=== PATIENT | female | born 1995 ===

== ENCOUNTER 2020-07-29 19:29 | Emergency (ER) | payer MEDICAID ==
[2020-07-29] MEDS ORDERED: Amoxicillin 500 MG Cap PO ONE (20:00)
--- NOTE | 2020-07-29 20:10 | EDM.PDOC ---
ED HPI GENERAL MEDICAL PROBLEM - General Chief Complaint: ENT Problem Stated Complaint: POSSIBLE EAR INFECTION Time Seen by Provider: 07/29/20 19:43 - History of Present Illness INITIAL COMMENTS - FREE TEXT/NARRATIVE: Otherwise well 25-year-old female presenting with 3 days of right ear pain fullness and diminished hearing associated with sore throat. No neck stiffness or pain reports some pain with swallowing as well. No shortness of breath no cough no fevers no chills no headache. Symptoms constant and slowly worsening without exacerbating or alleviating factors. 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 Skin: No rash. Eyes: No vision problems. ENT: Per HPI Neck: No neck stiffness. Respiratory: No shortness of breath. Cardiac: No chest pain. Gastrointestinal: No nausea, vomiting or abdominal pain. Urinary: No dysuria. Musculoskeletal: No myalgias/arthralgias. Neurologic: No headache. ED EXAM, GENERAL - Physical Exam Exam: See Below Free Text/Narrative:: General Appearance: No acute distress, appears comfortable Skin: No rash HEENT: Normocephalic/atraumatic, sclera anicteric, mucous membranes moist, right external auditory canal is tender and swollen, nearly swollen shut no mastoid tenderness no auricular swelling no auricular erythema or signs of a cellulitis, on oropharyngeal exam mild erythema but no vesicles uvula midline no submental or sublingual swelling no trismus Neck: Normal range of motion Chest and Lungs: Bilateral breath sounds, clear to auscultation Cardiovascular: Regular rate and rhythm, no murmur Musculoskeletal: No edema or tenderness Neurologic: Awake, alert, no obvious deficits, moving all extremities Psychiatric: Appropriate, cooperative Course - Vital Signs Last Recorded V/S: Last Vital Signs Temp 97.2 F 07/29/20 19:34 Pulse 94 07/29/20 19:34 Resp 14 07/29/20 19:34 BP 129/75 07/29/20 19:34 Pulse Ox 98 07/29/20 19:34 - Orders/Labs/Meds Meds: Medications Discontinued Medications Generic Name Dose Route Start Last Admin Trade Name Freamira PRN Reason Stop Dose Admin Amoxicillin 1,000 mg 07/29/20 20:00 07/29/20 20:09 Amoxil PO 07/29/20 20:01 1,000 mg ONETIME ONE Administration Departure - Departure Time of Disposition: 20:12 Disposition: Home, Self-Care 01 Condition: Good Clinical Impression: Otitis externa - Discharge Information *PRESCRIPTION DRUG MONITORING PROGRAM REVIEWED*: Not Applicable *COPY OF PRESCRIPTION DRUG MONITORING REPORT IN PATIENT NIDIA: Not Applicable Prescriptions: Amoxicillin 875 mg PO BID 7 Days #14 tablet Instructions: Otitis Externa, [id number] Referrals: [facility] [Outside] Forms: ED Department Discharge Additional Instructions: Please put 4 drops of the antibiotic eardrop in your right ear every 6 hours for the next 7 days. You can knot picker cloth the amoxicillin from [facility] pharmacy tomorrow morning. We are using the amoxicillin as well because you also have symptoms of otitis media. I encourage you to follow-up with your primary care provider as well. The following information is given to patients seen in the emergency department who are being discharged to home. This information is to outline your options f or follow-up care. We provide all patients seen in our emergency department with a follow-up referral. The need for follow-up, as well as the timing and circumstances, are variable depending upon the specifics of your emergency department visit. If you don't have a primary care physician on staff, we will provide you with a referral. We always advise you to contact your personal physician following an emergency department visit to inform them of the circumstance of the visit and for follow-up with them and/or the need for any referrals to a consulting specialist. The emergency department will also refer you to a specialist when appropriate. This referral assures that you have the opportunity for follow-up care with a specialist. All of these measure are taken in an effort to provide you with optimal care, which includes your follow-up. Under all circumstances we always encourage you to contact your private physician who remains a resource for coordinating your care. When calling for follow-up care, please make the office aware that this follow-up is from your recent emergency room visit. If for any reason you are refused follow-up, please contact the [facility] Emergency Department at and asked to speak to the emergency department charge nurse. Sepsis Event Note (ED) - Evaluation Sepsis Screening Result: No Definite Risk - Focused Exam Vital Signs: Vital Signs Temp Pulse Resp BP Pulse Ox 07/29/20 19:34 97.2 F 94 14 129/75 98 - Assessment/Plan Plan: 25-year-old female presenting with signs and symptoms most consistent with otitis externa no signs of mastoiditis no signs of meningitis no signs of malignant otitis no risk factors for this. Unfortunately, the external auditory canal is too swollen to get an adequate view of the tympanic membrane. Given this and given the associated sore throat and pain deeper in the ear I would favor empiric treatment for otitis media as well. Because she is we will need to use the Polytrim eardrops. It is unclear whether not we have that in stock if we do not then a prescription be written and she will start that tomorrow morning. No signs of KIER PLEATER RPA or other deep space infection in the neck.
[2020-07-30] MEDS ORDERED: Hydrocortisone/Neomycin/Polymyxin B Otic Susp 10 ML Bottle EARRT SCH
== END 2020-07-29 20:30 | disposition home or self-care (01) ==
LOC: MW.ED 19:29
DX: H60.91 Unspecified otitis externa, right ear (principal)
CPT/HCPCS: 99282; A9270

== ENCOUNTER 2020-12-04 05:06 | Inpatient (IN) | payer MEDICAID ==
[2020-12-04] MEDS: Lactated Ringers 1,000 ML IV SCH ×2 (05:40→07:09)
[2020-12-04] MEDS ORDERED: Sodium Chloride 0.9% 2.5 ML Syringe FLUSH PRN (06:09)
[2020-12-04] MEDS ORDERED: Sodium Chloride 0.9% 10 ML Syringe FLUSH PRN (06:09)
[2020-12-04] MEDS ORDERED: ceFAZolin 2 GM in Premix Bag 1 BAG IV ONE (06:09)
[2020-12-04] MEDS ORDERED: Sodium Chloride 0.9% 10 ML SDV IV PRN (06:09)
[2020-12-04] MEDS ORDERED: Citric Acid/Sodium Citrate Solution 30 ML Cup PO ONE (06:09)
[2020-12-04] MEDS ORDERED: Oxytocin/0.9 % Sodium Chloride 30 UNIT/500 ML BAG IV SCH (06:15)
[2020-12-04] MEDS ORDERED: Morphine PF 10 MG/10 ML SDV ONE (07:09)
--- NOTE | 2020-12-04 07:26 | PCM.PREANE ---
Preanesthetic Assessment - Anesthesia/Transfusion/Family Hx Anesthesia History: Prior Anesthesia Without Reaction (Spinals only) Family History of Anesthesia Reaction: No Transfusion History: No Prior Transfusion(s) - Review of Systems General: No Symptoms Pulmonary: No Symptoms Cardiovascular: No Symptoms Gastrointestinal: No Symptoms Neurological: No Symptoms Other: Reports: None - Physical Assessment NPO Status Date: 12/03/20 NPO Status Time: 22:00 Vital Signs: Last Vital Signs Temp 97.8 F 12/04/20 06:45 Pulse 67 12/04/20 06:45 Resp 16 12/04/20 06:45 BP 129/77 12/04/20 06:45 Pulse Ox 98 12/04/20 06:45 Height: 5 ft 11 in Weight: 86.183 kg ASA Class: 2 Mental Status: Alert & Oriented x3 Airway Class: Mallampati = 2 Dentition: Reports: Normal Dentition Thyro-Mental Finger Breadths: 3 Mouth Opening Finger Breadths: 3 ROM/Head Extension: Full Lungs: Clear to Auscultation, Normal Respiratory Effort Cardiovascular: Regular Rate, Regular Rhythm - Lab Values: Laboratory Last Values WBC 10.36 K/uL (4.0-11.0) 12/04/20 05:35 RBC 3.74 M/uL (4.30-5.90) L 12/04/20 05:35 Hgb 11.0 g/dL (12.0-16.0) L 12/04/20 05:35 Hct 34.2 % (36.0-46.0) L 12/04/20 05:35 MCV 91.4 fL (80.0-98.0) 12/04/20 05:35 MCH 29.4 pg (27.0-32.0) 12/04/20 05:35 MCHC 32.2 g/dL (31.0-37.0) 12/04/20 05:35 RDW Std Deviation 45.9 fl (28.0-62.0) 12/04/20 05:35 RDW Coeff of Rubio 14 % (11.0-15.0) 12/04/20 05:35 Plt Count 157 K/uL (150-400) 12/04/20 05:35 MPV 13.00 fL (7.40-12.00) H 12/04/20 05:35 Nucleated RBC % 0.0 /100WBC 12/04/20 05:35 Nucleated RBCs # 0 K/uL 12/04/20 05:35 Blood Type O POSITIVE 12/04/20 05:35 Antibody Screen NEGATIVE 12/04/20 05:35 - Allergies Allergies/Adverse Reactions: Allergies Allergy/AdvReac Type Severity Reaction Status Date / Time No Known Allergies Allergy Verified 11/28/20 08:20 - Blood Blood Available: Yes - Acknowledgements Anesthesia Type Planned: Spinal (with Duramorph) Pt an Appropriate Candidate for the Planned Anesthesia: Yes Alternatives and Risks of Anesthesia Discussed w Pt/Guardian: Yes Pt/Guardian Understands and Agrees with Anesthesia Plan: Yes PreAnesthesia Questionnaire HEENT History: Reports: None Cardiovascular History: Reports: None Respiratory History: Reports: None Gastrointestinal History: Reports: None Genitourinary History: Reports: None CUSTOMER SOLUTIONS COORDINATOR History: Reports: : 3 Para: 2 LMP (Approximate): Musculoskeletal History: Reports: None Neurological History: Reports: None Psychiatric History: Reports: None Endocrine/Metabolic History: Reports: None Hematologic History: Reports: None Immunologic History: Reports: None Oncologic (Cancer) History: Reports: None Dermatologic History: Reports: None - Infectious Disease History Infectious Disease History: Reports: Chicken Pox - Past Surgical History Head Surgeries/Procedures: Reports: None HEENT Surgical History: Reports: None Cardiovascular Surgical History: Reports: None Respiratory Surgical History: Reports: None GI Surgical History: Reports: None Female Surgical History: Reports: Section (x2) Other Female Surgeries/Procedures: c/section x2 Endocrine Surgical History: Reports: None Neurological Surgical History: Reports: None Musculoskeletal Surgical History: Reports: None Oncologic Surgical History: Reports: None Dermatological Surgical History: Reports: None - SUBSTANCE USE Tobacco Use Status *Q: Former Tobacco User Tobacco Use Within Last Twelve Months: Cigarettes Recreational Drug Use History: No - HOME MEDS Home Medications: Home Meds Pnv No.95/Ferrous Fum/Folic AC [ Vitamin Tablet] 1 each PO DAILY 07/29/20 [History] - CURRENT (IN HOUSE) MEDS Current Meds: Current Medications Oxytocin/Sodium Chloride (Oxytocin 30 Unit/500 Ml-Ns) 30 unit in 500 mls @ 250 mls/hr IV TITRATE THOM Lactated Ringer's (Ringers, Lactated) 1,000 mls @ 500 mls/hr IV BOLUS THOM Last Admin: 12/04/20 07:09 Dose: 500 mls/hr Documented by: Sodium Chloride (Saline Flush) 10 ml FLUSH ASDIRECTED PRN PRN Reason: Keep Vein Open Sodium Chloride (Saline Flush) 2.5 ml FLUSH ASDIRECTED PRN PRN Reason: Keep Vein Open Sodium Chloride (Normal Saline) 10 ml IV ASDIRECTED PRN PRN Reason: IV Use Discontinued Medications Citric Acid/Sodium Citrate (Bicitra Solution) 30 ml PO ONETIME ONE Stop: 12/04/20 06:10 Cefazolin Sodium/Dextrose 2 gm (/ Premix) 50 mls @ 100 mls/hr IV ONETIME ONE Stop: 12/04/20 06:38 Morphine Sulfate (Duramorph Pf) Confirm Administered Dose 10 mg .ROUTE .STK-MED ONE Stop: 12/04/20 07:10
[2020-12-04] MEDS ORDERED: Naloxone 0.4 MG/ML Syringe IVPUSH PRN (07:28)
[2020-12-04] MEDS ORDERED: diphenhydrAMINE 50 MG/ML SDV IVPUSH PRN ×2 (07:28→08:48)
[2020-12-04] MEDS ORDERED: ceFAZolin 1 GM Vial ONE (08:39)
[2020-12-04] MEDS ORDERED: Ondansetron 4 MG/2 ML SDV ONE (08:39)
[2020-12-04] MEDS ORDERED: Oxytocin 10 Units/1 ML SDV ONE (08:39)
[2020-12-04] MEDS ORDERED: Bisacodyl 10 MG Supp RECTAL PRN (08:48)
[2020-12-04] MEDS ORDERED: Ondansetron 4 MG/2 ML SDV IVPUSH PRN (08:48)
[2020-12-04] MEDS ORDERED: Oxytocin 10 Units/1 ML SDV IM PRN (08:48)
[2020-12-04] MEDS ORDERED: Lanolin 100% Cream 7 GM Tube TOP PRN (08:48)
--- NOTE | 2020-12-04 08:54 | PCM.OPNOTE ---
- General Post-Op/Procedure Note Date of Surgery/Procedure: 12/04/20 Operative Procedure(s): Repeat low-transverse section Findings: Live male , cephalic presentation, Apgars 8/9, weight 3710g. Normal-appearing uterus, ovaries, and tubes. Scant adhesions of bladder to anterior uterus. Pre Op Diagnosis: 25yo @ 39w0d. History of x2 Post-Op Diagnosis: 25yo @ 39w0d. History of x2 Anesthesia Technique: Spinal Primary Surgeon: Anitha Sanchez Anesthesia Provider: Donnell Crockett Geotechnical Engineering Technician: Madelin Kowalski Pathology: Cord blood Placenta disposed Fluid Replacement, Intraop: 1,000 Output, Urine Amount: 200 EBL in mLs: 450 Complications: None Condition: Good
[2020-12-04] MEDS ORDERED: Lactated Ringers 1,000 ML IV SCH (09:00)
[2020-12-04] MEDS ORDERED: Oxytocin/Lactated Ringers 30 UNIT/500 ML BAG IV SCH (09:00)
[2020-12-04] MEDS: Ketorolac 30 MG/ML SDV IVPUSH SCH ×3 (09:49→21:32)
--- NOTE | 2020-12-04 10:09 | PCM.POSTAN ---
POST ANESTHESIA ASSESSMENT - MENTAL STATUS Mental Status: Alert, Oriented - VITAL SIGNS Vital Signs: Last Vital Signs Temp 36.6 C 12/04/20 06:45 Pulse 67 12/04/20 06:45 Resp 16 12/04/20 06:45 BP 129/77 12/04/20 06:45 Pulse Ox 98 12/04/20 06:45 - RESPIRATORY Respiratory Status: Respiratory Rate WNL, Airway Patent, O2 Saturation Stable - CARDIOVASCULAR CV Status: Pulse Rate WNL, Blood Pressure Stable - GASTROINTESTINAL GI Status: No Symptoms - PAIN Pain Score: 0 - POST OP HYDRATION Hydration Status: Adequate & Stable - OBSERVATIONS Free Text/Narrative:: The patient is sitting up in bed with her baby, and appears in no acute distress. There were no apparent anesthetic complications at this time. Discharge to floor per criteria.
[2020-12-04] MEDS: Nalbuphine 10 MG/1 ML Vial IVPUSH PRN ×2 (10:47→14:10)
[2020-12-04] MEDS: Docusate Sodium 100 MG Cap PO SCH ×2 (12:47→21:32)
--- NOTE | 2020-12-04 15:00 | OR ---
SURGEON: Anitha Sanchez MD DATE OF PROCEDURE: 12/04/2020 PREOPERATIVE DIAGNOSES: 1. A 25-year-old, G3, P2, at 39 weeks and 0 days gestation. 2. History of delivery x2. POSTOPERATIVE DIAGNOSES: 1. A 25-year-old, G3, P2, at 39 weeks and 0 days gestation. 2. History of delivery x2. PROCEDURE: Repeat low transverse section. PRIMARY SURGEON: Anitha Sanchez MD ANESTHESIA: Spinal by Donnell Crockett CRNA. SEPARATOR OPERATOR: Madelin Kowalski MD IV FLUIDS: 1000 mL of LR. ESTIMATED BLOOD LOSS: 450 mL. URINE OUTPUT: 200 mL, clear yellow urine. ANTIBIOTIC PROPHYLAXIS: 2 g Ancef IV. FINDINGS: Live male in cephalic presentation. score of 8 and 9 at one and five minutes respectively. Weight 3710 g. Normal-appearing uterus, ovaries, and tubes. Scant adhesions of bladder to the anterior uterus. INDICATIONS: This is a 25-year-old, G3, P2, who presented at 39 weeks and 0 days gestation for planned repeat delivery. She has a history of delivery x2. Prior to surgery, the risks and benefits were reviewed with the patient, and she agreed to proceed. DESCRIPTION OF PROCEDURE: The patient was taken to the operating room where spinal anesthesia was obtained without difficulty. She was placed in a dorsal supine position with a leftward tilt. She was prepared and draped in normal sterile fashion. A Pfannenstiel skin incision was made with a scalpel using the previous scar and carried through to the underlying layer of fascia. The fascia was incised in the midline and the incision extended laterally with curved Draper scissors. The superior aspect of the fascial incision was grasped with Jose clamps, elevated, and underlying rectus muscles dissected off bluntly and with curved Draper scissors. In a similar fashion, the inferior aspect of the fascial incision was grasped with Jose clamps, elevated, and underlying rectus muscle dissected off bluntly and with curved Draper scissors. The peritoneum was inadvertently entered during the inferior fascial dissection. The peritoneal incision was extended using manual traction. A large Sergey retractor was placed. A bladder flap was created in the usual manner. A low uterine hysterotomy was created. The incision was extended using manual traction. Artificial rupture of membranes occurred with clear fluid noted. The infant's head was delivered atraumatically followed by the remainder of the body with fundal pressure. After approximately 30 seconds, the cord was clamped and cut. The was handed off to the awaiting nurse and respiratory therapist. Cord blood was obtained. The placenta then delivered using manual traction on the cord and uterine massage. The uterus was cleared of all clots and debris. The uterine incision was closed with a running lock stitch of 0 Vicryl suture. A second stitch of the same suture was used to obtain hemostasis. The gutters were cleared of clots. The hysterotomy was inspected and noted to be hemostatic. The Sergey retractor was removed. Fascial incision was closed with 0 Vicryl suture. The rest of the skin was closed with 4-0 Monocryl in subcuticular fashion. All sponge, lap, and needle counts were correct x3. Infant and the patient tolerated the delivery well. [id number] / MODL /[id number] MTDD
[2020-12-05] MEDS: Ketorolac 30 MG/ML SDV IVPUSH SCH ×2 (03:46→09:12)
--- NOTE | 2020-12-05 07:09 | PCM48HPAN ---
Post Anesthesia Note - EVALUATION WITHIN 48HRS OF ANESTHETIC Vital Signs in Normal Range: Yes Patient Participated in Evaluation: Yes Respiratory Function Stable: Yes Airway Patent: Yes Cardiovascular Function Stable: Yes Hydration Status Stable: Yes Pain Control Satisfactory: Yes Nausea and Vomiting Control Satisfactory: Yes Mental Status Recovered: Yes Vital Signs: Last Vital Signs Temp 97.2 F 12/05/20 01:00 Pulse 79 12/05/20 05:00 Resp 17 12/05/20 05:00 BP 128/74 12/05/20 01:00 Pulse Ox 98 12/05/20 05:00
[2020-12-05] MEDS: Docusate Sodium 100 MG Cap PO SCH ×2 (09:12→21:37)
--- NOTE | 2020-12-05 10:01 | PCM.PNPP ---
- General Info Date of Service: 12/05/20 Subjective Update: Notified by RN of mild bleeding from right-aspect of incision yesterday and overnight, has decreased since. No fever, patient able to ambulate without difficulty, denies dizziness with ambulating. Vital signs normal. Hemoglobin decrease as expected after . Functional Status: Reports: Pain Controlled, Tolerating Diet, Ambulating, Urinating - Review of Systems General: Reports: No Symptoms HEENT: Reports: No Symptoms Pulmonary: Reports: No Symptoms Cardiovascular: Reports: No Symptoms Gastrointestinal: Reports: Abdominal Pain (controlled with pain medication) Genitourinary: Reports: No Symptoms Musculoskeletal: Reports: No Symptoms Skin: Reports: No Symptoms Neurological: Reports: No Symptoms Psychiatric: Reports: No Symptoms - Patient Data Vital Signs - Most Recent: Last Vital Signs Temp 36.2 C 12/05/20 07:30 Pulse 63 12/05/20 07:30 Resp 18 12/05/20 07:30 BP 112/69 12/05/20 07:30 Pulse Ox 96 12/05/20 07:30 Weight - Most Recent: 86.183 kg I&O - Last 24 Hours: Intake & Output 12/04/20 12/05/20 12/05/20 22:59 06:59 14:59 Intake Total 1800 1500 Output Total 1450 2775 Balance 350 -1275 Lab Results - Last 24 Hours: Laboratory Results - last 24 hr 12/05/20 Range/Units 05:03 Hgb 9.7 L (12.0-16.0) g/dL Hct 31.1 L (36.0-46.0) % Med Orders - Current: Current Medications Bisacodyl (Dulcolax) 10 mg RECTAL ONETIME PRN PRN Reason: Constipation Diphenhydramine HCl (Benadryl) 25 mg IVPUSH Q6H PRN PRN Reason: Itching or Nausea Docusate Sodium (Colace) 100 mg PO BID [facility] Last Admin: 12/05/20 09:12 Dose: 100 mg Documented by: Emollient Ointment (Lansinoh Hpa) 0 gm TOP ASDIRECTED PRN PRN Reason: Sore Nipples Oxytocin/Sodium Chloride (Oxytocin 30 Unit/500 Ml-Ns) 30 unit in 500 mls @ 250 mls/hr IV TITRATE [facility] Lactated Ringer's (Ringers, Lactated) 1,000 mls @ 500 mls/hr IV BOLUS THOM Last Admin: 12/04/20 07:09 Dose: 500 mls/hr Documented by: Lactated Ringer's (Ringers, Lactated) 1,000 mls @ 125 mls/hr IV ASDIRECTED THOM Last Admin: 12/04/20 09:43 Dose: 125 mls/hr Documented by: Oxytocin/Lactated Ringer's (Pitocin In Lr 30 Units/500 Ml) 30 unit in 500 mls @ 999 mls/hr IV TITRATE THOM; Protocol Ibuprofen (Motrin) 800 mg PO Q8H PRN PRN Reason: mild pain or fever Ondansetron HCl (Zofran) 4 mg IVPUSH Q4H PRN PRN Reason: Nausea/Vomiting Oxycodone/Acetaminophen (Percocet 325-5 Mg) 1 tab PO Q4H PRN PRN Reason: Pain (moderate 4-6) Oxycodone/Acetaminophen (Percocet 325-5 Mg) 2 tab PO Q4H PRN PRN Reason: Pain (moderate 4-6) Oxytocin (Pitocin) 10 unit IM ASDIRECTED PRN PRN Reason: Excessive Vaginal Bleeding Sodium Chloride (Saline Flush) 10 ml FLUSH ASDIRECTED PRN PRN Reason: Keep Vein Open Sodium Chloride (Saline Flush) 2.5 ml FLUSH ASDIRECTED PRN PRN Reason: Keep Vein Open Sodium Chloride (Normal Saline) 10 ml IV ASDIRECTED PRN PRN Reason: IV Use Discontinued Medications Cefazolin Sodium (Ancef) Confirm Administered Dose 2 gm .ROUTE .STK-MED ONE Stop: 12/04/20 08:40 Citric Acid/Sodium Citrate (Bicitra Solution) 30 ml PO ONETIME ONE Stop: 12/04/20 06:10 Diphenhydramine HCl (Benadryl) 25 mg IVPUSH Q4H PRN PRN Reason: Itching Stop: 12/05/20 07:28 Last Admin: 12/04/20 09:39 Dose: 25 mg Documented by: Cefazolin Sodium/Dextrose 2 gm (/ Premix) 50 mls @ 100 mls/hr IV ONETIME ONE Stop: 12/04/20 06:38 Last Admin: 12/04/20 12:43 Dose: Not Given Documented by: Ketorolac Tromethamine (Toradol) 30 mg IVPUSH Q6H [facility] Stop: 12/05/20 09:01 Last Admin: 12/05/20 09:12 Dose: 30 mg Documented by: Morphine Sulfate (Duramorph Pf) Confirm Administered Dose 10 mg .ROUTE .STK-MED ONE Stop: 12/04/20 07:10 Nalbuphine HCl (Nubain) 5 mg IVPUSH Q3H PRN PRN Reason: Pruritis Stop: 12/05/20 07:28 Last Admin: 12/04/20 14:10 Dose: 5 mg Documented by: Naloxone HCl (Narcan) 0.1 mg IVPUSH ONETIME PRN PRN Reason: Respiratory Depression Stop: 12/05/20 07:28 Ondansetron HCl (Zofran) Confirm Administered Dose 4 mg .ROUTE .STK-MED ONE Stop: 12/04/20 08:40 Oxytocin (Pitocin) Confirm Administered Dose 30 unit .ROUTE .STK-MED ONE Stop: 12/04/20 08:40 - Interaction Disposition, : in Room with Family Infant Interaction: Holding Infant Feeding: Bottle Fed Infant, Breastfed ; Nursed Well - Recovery Exam Fundal Tone: Firm Fundal Level: 2 Fingerbreadths Below Umbilicus Fundal Placement: Midline Lochia Amount: Scant Lochia Color: Rubra/Red Bladder Status: Voiding Urinary Elimination: Voided - Exam General: Alert, Oriented Neck: Supple Lungs: Normal Respiratory Effort GI/Abdominal Exam: Soft, No Distention, Tender (appropriate tenderness to palpation) Extremities: No Pedal Edema Skin: Warm, Dry, Intact Wound/Incisions: Drainage (left aspect of incision, no active drainage currently) Neurological: No New Focal Deficit Psy/Mental Status: Alert, Normal Affect, Normal Mood - Problem List & Annotations (1) Status post repeat low transverse section SNOMED Code(s): 233788129, 51300533, 826185060, 725818961, 843370668 Code(s): Z98.891 - HISTORY OF UTERINE SCAR FROM PREVIOUS SURGERY Status: Acute Current Visit: Yes (2) History of 2 sections SNOMED Code(s): 879045321 Code(s): Z98.891 - HISTORY OF UTERINE SCAR FROM PREVIOUS SURGERY Status: Acute Current Visit: Yes - Problem List Review Problem List Initiated/Reviewed/Updated: Yes - My Orders Last 24 Hours: My Active Orders 12/04/20 09:00 Docusate Sodium [Colace] 100 mg PO BID Lactated Ringers [Ringers, Lactated] 1,000 ml IV ASDIRECTED Oxytocin/Lactated Ringers [Pitocin in LR 30 Units/500 ML] 30 unit in 500 ml IV TITRATE 12/04/20 Lunch Regular Diet [DIET] 12/05/20 15:00 Ibuprofen [Motrin] 800 mg PO Q8H PRN - Assessment Assessment:: 25yo s/p CS #3 at 39w0d, POD#1 - Plan Plan:: 1. Post-op care: Replace pressure dressing and monitor closely. Abdominal binder to keep pressure on incision and abdomen. Vital signs and hemoglobin stable. Suspect hematoma developing from oozing at time of surgery. Would consider imaging or surgical exploration if vital signs become abnormal, patient comp lains of signs/symptoms of anemia, or if active bleeding from incision. Encourage ambulation today. 2. Continue breast feeding. 3. Dispo: Plan to discharge home tomorrow if incision stable and pain co ntrolled.
[2020-12-05] MEDS: Acetaminophen/oxyCODONE 325-5 MG Tab PO PRN ×4 (13:36→22:23)
[2020-12-05] MEDS: Ibuprofen 800 MG Tab PO PRN (15:23)
[2020-12-06] MEDS: Ibuprofen 800 MG Tab PO PRN (01:58)
[2020-12-06] MEDS: Acetaminophen/oxyCODONE 325-5 MG Tab PO PRN ×2 (06:54→11:55)
--- NOTE | 2020-12-06 08:32 | PCM.PNPP ---
- General Info Date of Service: 12/06/20 Subjective Update: Patient reports bandage on since 7pm last night. Pain controlled with 2 Percocet and Ibuprofen. Denies dizziness, fever/chills. Functional Status: Reports: Pain Controlled, Tolerating Diet, Ambulating, Urinating - Review of Systems General: Reports: No Symptoms HEENT: Reports: No Symptoms Pulmonary: Reports: No Symptoms Cardiovascular: Reports: No Symptoms Gastrointestinal: Reports: No Symptoms Genitourinary: Reports: No Symptoms Musculoskeletal: Reports: No Symptoms Skin: Reports: No Symptoms Neurological: Reports: No Symptoms Psychiatric: Reports: No Symptoms - Patient Data Vital Signs - Most Recent: Last Vital Signs Temp 36.4 C 12/06/20 05:00 Pulse 72 12/06/20 05:00 Resp 19 12/06/20 05:00 BP 117/78 12/06/20 05:00 Pulse Ox 97 12/06/20 05:00 Weight - Most Recent: 86.183 kg Lab Results - Last 24 Hours: Laboratory Results - last 24 hr 12/04/20 12/06/20 Range/Units 05:35 06:59 Hgb 9.9 L (12.0-16.0) g/dL Hct 31.2 L (36.0-46.0) % RPR Non-Reac (Non-Reac) Med Orders - Current: Current Medications Bisacodyl (Dulcolax) 10 mg RECTAL ONETIME PRN PRN Reason: Constipation Diphenhydramine HCl (Benadryl) 25 mg IVPUSH Q6H PRN PRN Reason: Itching or Nausea Docusate Sodium (Colace) 100 mg PO BID [facility] Last Admin: 12/05/20 21:37 Dose: 100 mg Documented by: Emollient Ointment (Lansinoh Hpa) 0 gm TOP ASDIRECTED PRN PRN Reason: Sore Nipples Oxytocin/Sodium Chloride (Oxytocin 30 Unit/500 Ml-Ns) 30 unit in 500 mls @ 250 mls/hr IV TITRATE [facility] Lactated Ringer's (Ringers, Lactated) 1,000 mls @ 500 mls/hr IV BOLUS [facility] Last Admin: 12/04/20 07:09 Dose: 500 mls/hr Documented by: Lactated Ringer's (Ringers, Lactated) 1,000 mls @ 125 mls/hr IV ASDIRECTED [facility] Last Admin: 12/04/20 09:43 Dose: 125 mls/hr Documented by: Oxytocin/Lactated Ringer's (Pitocin In Lr 30 Units/500 Ml) 30 unit in 500 mls @ 999 mls/hr IV TITRATE THOM; Protocol Ibuprofen (Motrin) 800 mg PO Q8H PRN PRN Reason: mild pain or fever Last Admin: 12/06/20 01:58 Dose: 800 mg Documented by: Ondansetron HCl (Zofran) 4 mg IVPUSH Q4H PRN PRN Reason: Nausea/Vomiting Oxycodone/Acetaminophen (Percocet 325-5 Mg) 1 tab PO Q4H PRN PRN Reason: Pain (moderate 4-6) Last Admin: 12/05/20 14:40 Dose: 1 tab Documented by: Oxycodone/Acetaminophen (Percocet 325-5 Mg) 2 tab PO Q4H PRN PRN Reason: Pain (moderate 4-6) Last Admin: 12/06/20 06:54 Dose: 2 tab Documented by: Oxytocin (Pitocin) 10 unit IM ASDIRECTED PRN PRN Reason: Excessive Vaginal Bleeding Sodium Chloride (Saline Flush) 10 ml FLUSH ASDIRECTED PRN PRN Reason: Keep Vein Open Sodium Chloride (Saline Flush) 2.5 ml FLUSH ASDIRECTED PRN PRN Reason: Keep Vein Open Sodium Chloride (Normal Saline) 10 ml IV ASDIRECTED PRN PRN Reason: IV Use Discontinued Medications Cefazolin Sodium (Ancef) Confirm Administered Dose 2 gm .ROUTE .STK-MED ONE Stop: 12/04/20 08:40 Citric Acid/Sodium Citrate (Bicitra Solution) 30 ml PO ONETIME ONE Stop: 12/04/20 06:10 Diphenhydramine HCl (Benadryl) 25 mg IVPUSH Q4H PRN PRN Reason: Itching Stop: 12/05/20 07:28 Last Admin: 12/04/20 09:39 Dose: 25 mg Documented by: Cefazolin Sodium/Dextrose 2 gm (/ Premix) 50 mls @ 100 mls/hr IV ONETIME ONE Stop: 12/04/20 06:38 Last Admin: 12/04/20 12:43 Dose: Not Given Documented by: Ketorolac Tromethamine (Toradol) 30 mg IVPUSH Q6H [facility] Stop: 12/05/20 09:01 Last Admin: 12/05/20 09:12 Dose: 30 mg Documented by: Morphine Sulfate (Duramorph Pf) Confirm Administered Dose 10 mg .ROUTE .STK-MED ONE Stop: 12/04/20 07:10 Nalbuphine HCl (Nubain) 5 mg IVPUSH Q3H PRN PRN Reason: Pruritis Stop: 12/05/20 07:28 Last Admin: 12/04/20 14:10 Dose: 5 mg Documented by: Naloxone HCl (Narcan) 0.1 mg IVPUSH ONETIME PRN PRN Reason: Respiratory Depression Stop: 12/05/20 07:28 Ondansetron HCl (Zofran) Confirm Administered Dose 4 mg .ROUTE .STK-MED ONE Stop: 12/04/20 08:40 Oxytocin (Pitocin) Confirm Administered Dose 30 unit .ROUTE .STK-MED ONE Stop: 12/04/20 08:40 - Infant Interaction Disposition, : in Room with Family Feeding: Bottle Fed , Breastfed ; Nursed Well Support Person: Mother - Recovery Exam Fundal Tone: Firm Fundal Level: 2 Fingerbreadths Below Umbilicus Fundal Placement: Midline Lochia Amount: Scant Bladder Status: Voiding Urinary Elimination: Voided - Exam General: Alert, Oriented Neck: Supple Lungs: Normal Respiratory Effort GI/Abdominal Exam: Soft, No Distention, Tender (appropriate tenderness to palpation) Extremities: No Pedal Edema Skin: Warm, Dry, Intact Wound/Incisions: Drainage (bandage with blood) Neurological: No New Focal Deficit Psy/Mental Status: Alert, Normal Affect, Normal Mood - Problem List & Annotations (1) Status post repeat low transverse section SNOMED Code(s): 083355356, 05971501, 061630530, 565740229, 446722971 Code(s): Z98.891 - HISTORY OF UTERINE SCAR FROM PREVIOUS SURGERY Status: Acute Current Visit: Yes (2) History of 2 sections SNOMED Code(s): 020015999 Code(s): Z98.891 - HISTORY OF UTERINE SCAR FROM PREVIOUS SURGERY Status: Acute Current Visit: Yes - Problem List Review Problem List Initiated/Reviewed/Updated: Yes - My Orders Last 24 Hours: My Active Orders 12/05/20 15:00 Ibuprofen [Motrin] 800 mg PO Q8H PRN - Assessment Assessment:: 25yo s/p CS #3 at 39w0d, POD#2 - Plan Plan:: 1. Post-op care: Hemoglobin this AM stable from yesterday, vital signs remain stable. Low suspicion for internal hemorrhage, suspect superficial hematoma that is draining. Will change dressing and re-evaluate at noon - if significant bleeding, will obtain imaging and discuss exploration. 2. Continue breast feeding. 3. Dispo: Plan to discharge home this afternoon if incision stable and pain controlled. Reviewed discharge instructions/precautions.
[2020-12-06] MEDS: Docusate Sodium 100 MG Cap PO SCH (11:56)
--- NOTE | 2020-12-06 12:03 | PCM.SN.2 ---
- Free Text/Narrative Note: Dressing inspected - small amount of serosanguineous drainage on bandage, food beverage supervisor in color and less in volume than past day. Plan to discharge home. Reviewed close monitoring of incision and to call if any changes. Plan to see patient in clinic on 12/11 for incision check, sooner if problems arise.
[2020-12-07] MEDS ORDERED: fentaNYL 100 MCG/2 ML SDV ONE (12:18)
[2020-12-07] MEDS ORDERED: Ondansetron 4 MG/2 ML SDV ONE (12:18)
[2020-12-07] MEDS ORDERED: Midazolam 1 MG/ML 2 ML SDV ONE (12:18)
[2020-12-07] MEDS ORDERED: Propofol 200 MG/20 ML SDV ONE (12:18)
[2020-12-07] MEDS ORDERED: Rocuronium Bromide 50 MG/5 ML Syringe ONE (12:19)
[2020-12-07] MEDS ORDERED: Sodium Chloride 0.9% 20 ML ONE (12:28)
[2020-12-07] MEDS ORDERED: ceFAZolin 1 GM Vial ONE (12:28)
[2020-12-07] MEDS ORDERED: Morphine 10 MG/ML Syringe ONE (12:30)
== END 2020-12-06 13:49 | disposition home or self-care (01) | DRG 788 ==
LOC: MW.OB 05:06
PROVIDERS: ADMIT Obstetrics & Gynecology; ATTEND Obstetrics & Gynecology
PROC: 10D00Z1 Extraction of Products of Conception, Low, Open Approach (ICD-10-PCS; principal; 2020-12-04)
DX: O34.211 Maternal care for low transverse scar from previous cesarean delivery (principal); Z37.0 Single live birth; Z3A.39 39 weeks gestation of pregnancy
CPT/HCPCS: 36415; 59025; 85014; 85018; 85027; 86592; 86850; 86900; 86901; A9270-GY; J0690; J1200; J1885; J2270; J2300; J2405; J2590; J7120

== ENCOUNTER 2020-12-07 12:29 | Observation (INO) | payer MEDICAID ==
[~2020-12-07 12:29] MED LIST: Rocuronium Bromide 50 MG/5 ML Syringe ONE; Sodium Chloride 0.9% 10 ML SDV IV PRN; Sodium Chloride 0.9% 10 ML Syringe FLUSH PRN; Sodium Chloride 0.9% 2.5 ML Syringe FLUSH PRN; Sugammadex Sodium 200 MG/2 ML VIAL ONE; ceFAZolin 2 GM in Premix Bag 1 BAG IV ONE
[2020-12-07] MEDS ORDERED: Lactated Ringers 1,000 ML IV SCH ×2 (12:30→15:00)
--- NOTE | 2020-12-07 12:31 | PCM.HP.2 ---
H&P History of Present Illness - General Date of Service: 12/07/20 Admit Problem/Dx: Admission Diagnosis/Problem Admission Diagnosis/Problem Dehiscence of section wound, Source of Information: Patient History Limitations: Reports: No Limitations - History of Present Illness Initial Comments - Free Text/Narative: Patient POD#3 s/p repeat at 39w0d. During hospitalization, drainage from incision without signs/symptoms of infection or worsening anemia - felt to be hematoma draining. Prior to discharge home on POD#2, drainage had decreased and patient was doing well. Went to change bandage this morning and noticed bandage stuck to incision. She immediately presented to clinic. At clinic, bandage removed. Small amount of fat noted in 2cm opening of pfannenstiel incision. Incision probed, unable to sense fascia. Additional subcutaneous suture opened, at which point, bowel was noted to be coming through incision. The bowel was packed with moist sponges and covered with a pressure dressing. The patient was wheeled to pre-op. She has been afebrile since discharge home yesterday. Onset of Symptoms: Reports: Today - Related Data Allergies/Adverse Reactions: Allergies Allergy/AdvReac Type Severity Reaction Status Date / Time No Known Allergies Allergy Verified 11/28/20 08:20 Home Medications: Home Meds Pnv No.95/Ferrous Fum/Folic AC [ Vitamin Tablet] 1 each PO DAILY 07/29/20 [History] Docusate Sodium [Colace] 100 mg PO BID PRN #60 cap 12/06/20 [Rx] Ibuprofen 800 mg PO Q8H PRN #60 tablet 12/06/20 [Rx] oxyCODONE HCl/Acetaminophen [Percocet 5-325 mg Tablet] 1 - 2 each PO Q6H PRN #30 tablet 12/06/20 [Rx] Past Medical History HEENT History: Reports: None Cardiovascular History: Reports: None Respiratory History: Reports: None Gastrointestinal History: Reports: None Genitourinary History: Reports: None 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: Other OB/BYN History: , s/p #3 on 12/04/2020 Musculoskeletal History: Reports: None Neurological History: Reports: None Psychiatric History: Reports: None Endocrine/Metabolic History: Reports: None Hematologic History: Reports: None Immunologic History: Reports: None Oncologic (Cancer) History: Reports: None Dermatologic History: Reports: None - Infectious Disease History Infectious Disease History: Reports: Chicken Pox - Past Surgical History Head Surgeries/Procedures: Reports: None HEENT Surgical History: Reports: None Cardiovascular Surgical History: Reports: None Respiratory Surgical History: Reports: None GI Surgical History: Reports: None Female Surgical History: Reports: Section (x3) Other Female Surgeries/Procedures: c/section x3 Endocrine Surgical History: Reports: None Neurological Surgical History: Reports: None Musculoskeletal Surgical History: Reports: None Oncologic Surgical History: Reports: None Dermatological Surgical History: Reports: None Social & Family History - Family History HEENT: Reports: None Cardiac: Reports: None Respiratory: Reports: Asthma GI: Reports: None : Reports: None OBGYN: Reports: Musculoskeletal: Reports: None Neurological: Reports: CVA Psychiatric: Reports: None Endocrine/Metabolic: Reports: None Hematologic: Reports: None Immunologic: Reports: None Dermatologic: Reports: None Oncologic: Reports: None - Caffeine Use Caffeine Use: Reports: None H&P Review of Systems - Review of Systems: Review Of Systems: See Below General: Reports: No Symptoms. Denies: Fever HEENT: Reports: No Symptoms Pulmonary: Reports: No Symptoms Cardiovascular: Reports: No Symptoms Gastrointestinal: Reports: Abdominal Pain Genitourinary: Reports: No Symptoms Musculoskeletal: Reports: No Symptoms Skin: Reports: No Symptoms Psychiatric: Reports: No Symptoms Neurological: Reports: No Symptoms Hematologic/Lymphatic: Reports: No Symptoms Immunologic: Reports: No Symptoms Exam - Exam Exam: See Below - Vital Signs Vital Signs: BP 124/76 HR 72 Temp 97.1 SpO2 98% Height 71in Weight 187.2lbs BMI 26.11 - Exam General: Alert, Oriented, 4 Neck: Supple Lungs: Normal Respiratory Effort GI/Abdominal Exam: Soft, No Distention Extremities: No Pedal Edema Skin: Incision (now open 6-7cm midline with bowel herniation) Neuro Extensive - Mental Status: Alert, Oriented x3, Normal Mood/Affect, Normal Cognition Psychiatric: Alert, Normal Affect, Normal Mood *Q Meaningful Use (ADM) - VTE *Q VTE Mechanical Contraindications *Q: At Risk for Falls VTE Pharmacological Contraindications *Q: Patient Scheduled Surgery - VTE Risk Assess *Q Each Risk Factor Represents 1 Point: Minor Surgery Planned, or , Less than 1 Month Total Score 1 Point Risk Factors: 2 Each Risk Factor Represents 2 Points: None Total Score 2 Point Risk Factors: 0 Each Risk Factor Represents 3 Points: None Total Score 3 Point Risk Factors: 0 Each Risk Factor Represents 5 Points: None Total Score 5 Point Risk Factors: 0 Venous Thromboembolism Risk Factor Score *Q: 2 - Stroke *Q Aspirin Contraindications Stroke *Q: Other (Use Special Inst) Anticoagulation Contraindications Stroke *Q: Med/TX Not Indicated/Need Antithrombotic Contraindications Stroke *Q: Med/TX Not Indicated/Need Thrombolytic/Fibrinolytic Contraindications Stroke *Q: Med/TX Not Indicated/Need Statin Contraindications Stroke *Q: Med/TX Not Indicated/Need Rehabilitation Assessment Contraindication *Q: Med/tx not indicated/need - AMI *Q Aspirin Contraindications AMI *Q: Med/TX Not Indicated/Need Thrombolytic/Fibrinolytic Contraindications IV (AMI) *Q: Med/tx not indicated/need Statin Contraindications AMI *Q: Med/TX Not Indicated/Need - Problem List (1) Dehiscence of section wound, SNOMED Code(s): 319130405 ICD Code: O90.0 - DISRUPTION OF DELIVERY WOUND Status: Acute Problem List Initiated/Reviewed/Updated: Yes Orders Last 24hrs: Active Orders 24 hr Category Date Time Status Patient Status [ADT] Routine ADT 12/07/20 12:21 Ordered Antiembolic Devices [RC] PER UNIT ROUTINE Care 12/07/20 12:22 Ordered Procedure Site Prep Instruct [RC] PER UNIT ROUTINE Care 12/07/20 12:21 Ordered Verify Patient Consent Obtain [RC] PER UNIT ROUTINE Care 12/07/20 12:21 Ordered Vital Signs [RC] PER UNIT ROUTINE Care 12/07/20 12:21 Ordered Nothing Per Oral Diet [DIET] Diet 12/07/20 Lunch Ordered BASIC METABOLIC PANEL,BMP [CHEM] Stat Lab 12/07/20 12:24 Ordered CBC W/O DIFF,HEMOGRAM [HEME] Stat Lab 12/07/20 12:24 Ordered TYPE AND SCREEN [BBK] Routine Lab 12/07/20 12:21 Ordered Lactated Ringers @ 125 MLS/HR(1000ml) Med 12/07/20 12:30 Ordered Lactated Ringers [Ringers, Lactated] 1,000 ml IV ASDIRECTED Sodium Chloride 0.9% [Normal Saline] Med 12/07/20 12:21 Ordered 10 ml IV ASDIRECTED PRN Sodium Chloride 0.9% [Saline Flush] Med 12/07/20 12:21 Ordered 10 ml FLUSH ASDIRECTED PRN Sodium Chloride 0.9% [Saline Flush] Med 12/07/20 12:21 Ordered 2.5 ml FLUSH ASDIRECTED PRN ceFAZolin [Ancef] 2 gm Med 12/07/20 12:21 Ordered Premix Bag 1 bag IV ONETIME Peripheral IV Insertion Adult [OM.PC] Urgent Oth 12/07/20 12:21 Ordered Sequential Compression Device [OM.PC] Per Unit Routine Oth 12/07/20 12:21 Ordered Medication Orders Lactated Ringer's (Ringers, Lactated) 1,000 mls @ 125 mls/hr IV ASDIRECTED THOM Cefazolin Sodium/Dextrose 2 gm (/ Premix) 50 mls @ 100 mls/hr IV ONETIME ONE Stop: 12/07/20 12:50 Sodium Chloride (Saline Flush) 10 ml FLUSH ASDIRECTED PRN PRN Reason: Keep Vein Open Sodium Chloride (Saline Flush) 2.5 ml FLUSH ASDIRECTED PRN PRN Reason: Keep Vein Open Sodium Chloride (Normal Saline) 10 ml IV ASDIRECTED PRN PRN Reason: IV Use Assessment/Plan Comment:: 25yo s/p repeat #3 on 12/04/2020 at 39w0d, POD#3 1. Fascial dehiscence with bowel herniation: -Plan urgent exploratory laparotomy with closure of incision -I have spoken with Dr. Vic Coats with General Surgery to assist with surgery in evaluating bowel for injury -2g Ancef IV prior to incision -Reviewed risks of surgery with patient, including but not limited to, infection, bleeding, anesthesia complications, bowel injury with possible need for additional surgery. She voiced understanding of these risks and agreed to proceed as necessary -COVID negative on 12/03/2020 -Will observe patient overnight for both pain control and monitoring for infection - Mortality Measure Prognosis:: Good
--- NOTE | 2020-12-07 12:51 | PCM.PREANE ---
Preanesthetic Assessment - Anesthesia/Transfusion/Family Hx Anesthesia History: Prior Anesthesia Without Reaction (c section x 3. last 4 days ago) Family History of Anesthesia Reaction: No Transfusion History: No Prior Transfusion(s) - Review of Systems General: No Symptoms Pulmonary: No Symptoms Cardiovascular: No Symptoms Neurological: No Symptoms Other: Reports: None - Physical Assessment NPO Status Date: 12/07/20 (breakfast at 0730, tea at 1200) ASA Class: 2E Mental Status: Alert & Oriented x3 Airway Class: Mallampati = 2 Dentition: Reports: Normal Dentition ROM/Head Extension: Full Lungs: Clear to Auscultation, Normal Respiratory Effort Cardiovascular: Regular Rate, Regular Rhythm - Allergies Allergies/Adverse Reactions: Allergies Allergy/AdvReac Type Severity Reaction Status Date / Time No Known Allergies Allergy Verified 11/28/20 08:20 - Acknowledgements Anesthesia Type Planned: General Anesthesia Pt an Appropriate Candidate for the Planned Anesthesia: Yes Alternatives and Risks of Anesthesia Discussed w Pt/Guardian: Yes Pt/Guardian Understands and Agrees with Anesthesia Plan: Yes Additional Comments: abd wound dehissance PLAN: GET with RSI, 2 grams ancef given at 1240 PreAnesthesia Questionnaire HEENT History: Reports: None Cardiovascular History: Reports: None Respiratory History: Reports: None Gastrointestinal History: Reports: None Genitourinary History: Reports: None 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: Other OB/BYN History: , s/p #3 on 12/04/2020 Musculoskeletal History: Reports: None Neurological History: Reports: None Psychiatric History: Reports: None Endocrine/Metabolic History: Reports: None Hematologic History: Reports: None Immunologic History: Reports: None Oncologic (Cancer) History: Reports: None Dermatologic History: Reports: None - Infectious Disease History Infectious Disease History: Reports: Chicken Pox - Past Surgical History Head Surgeries/Procedures: Reports: None HEENT Surgical History: Reports: None Cardiovascular Surgical History: Reports: None Respiratory Surgical History: Reports: None GI Surgical History: Reports: None Female Surgical History: Reports: Section (x3) Other Female Surgeries/Procedures: c/section x3 Endocrine Surgical History: Reports: None Neurological Surgical History: Reports: None Musculoskeletal Surgical History: Reports: None Oncologic Surgical History: Reports: None Dermatological Surgical History: Reports: None - HOME MEDS Home Medications: Home Meds Pnv No.95/Ferrous Fum/Folic AC [ Vitamin Tablet] 1 each PO DAILY 07/29/20 [History] Docusate Sodium [Colace] 100 mg PO BID PRN #60 cap 12/06/20 [Rx] Ibuprofen 800 mg PO Q8H PRN #60 tablet 12/06/20 [Rx] oxyCODONE HCl/Acetaminophen [Percocet 5-325 mg Tablet] 1 - 2 each PO Q6H PRN #30 tablet 12/06/20 [Rx] - CURRENT (IN HOUSE) MEDS Current Meds: Current Medications Lactated Ringer's (Ringers, Lactated) 1,000 mls @ 125 mls/hr IV ASDIRECTED THOM Cefazolin Sodium/Dextrose 2 gm (/ Premix) 50 mls @ 100 mls/hr IV ONETIME ONE Stop: 12/07/20 12:50 Sodium Chloride (Saline Flush) 10 ml FLUSH ASDIRECTED PRN PRN Reason: Keep Vein Open Sodium Chloride (Saline Flush) 2.5 ml FLUSH ASDIRECTED PRN PRN Reason: Keep Vein Open Sodium Chloride (Normal Saline) 10 ml IV ASDIRECTED PRN PRN Reason: IV Use Discontinued Medications Acetaminophen (Ofirmev) Confirm Administered Dose 100 mls @ as directed .ROUTE .STK-MED ONE Stop: 12/07/20 12:23 Rocuronium [place] (Rocuronium [place]) Confirm Administered Dose 50 mg .ROUTE .STK-MED ONE Stop: 12/07/20 12:24 Sugammadex Sodium (Bridion) Confirm Administered Dose 200 mg .ROUTE .STK-MED ONE Stop: 12/07/20 12:23
[2020-12-07 13:33] LABS: BLOOD UREA NITROGEN,BUN 13 mg/dL (7.0-18.0); CARBON DIOXIDE,CO2 25.5 mmol/L (21.0-32.0); CHLORIDE,CL 105 mmol/L (98-107); GLUCOSE RANDOM 76 mg/dL (74-106); POTASSIUM,K 4.1 mmol/L (3.5-5.1); SODIUM,NA 142 mmol/L (136-145)
[2020-12-07] MEDS ORDERED: Morphine 4 MG/ML Syringe IVPUSH ONE (13:56)
--- NOTE | 2020-12-07 14:30 | CR ---
INDICATION: Wound debris abdominal packing, evaluate for retained foreign bodies TECHNIQUE: Abdomen 1 view. COMPARISON: None FINDINGS: Bowel: Bowel pattern is normal. Diffuse colonic fecal retention. Soft tissues: No sign of free air. No sign of soft tissue mass. No suspicious calcifications. 5 millimeter radiopaque density projects over the right mid abdomen. Bones: Unremarkable for age. IMPRESSION: Millimeter radiopaque density projects over the right mid abdomen. Correlate with objects on the skin surface. Dictated by Matthias Serrano MD @ Dec 07 2020 2:24PM Signed by Dr. Matthias Serrano @ Dec 07 2020 2:28PM
--- NOTE | 2020-12-07 14:54 | PCM.POSTAN ---
POST ANESTHESIA ASSESSMENT - MENTAL STATUS Mental Status: Alert - VITAL SIGNS Vital Signs: Last Vital Signs Temp 36.4 C 12/07/20 14:23 Pulse 70 12/07/20 14:45 Resp 15 12/07/20 14:45 BP 120/66 12/07/20 14:45 Pulse Ox 98 12/07/20 14:45 - RESPIRATORY Respiratory Status: Respiratory Rate WNL - CARDIOVASCULAR CV Status: Pulse Rate WNL - GASTROINTESTINAL GI Status: No Symptoms - PAIN Pain Score: 4 (Mso4 given) - POST OP HYDRATION Hydration Status: Adequate & Stable - OBSERVATIONS Free Text/Narrative:: Doing well. Ready to be transferred to floor. No problems noted.
[2020-12-07] MEDS ORDERED: Morphine 4 MG/ML Syringe IVPUSH PRN (14:55)
[2020-12-07] MEDS ORDERED: Ondansetron 4 MG/2 ML SDV IVPUSH PRN (14:55)
[2020-12-07] MEDS ORDERED: Acetaminophen/oxyCODONE 325-5 MG Tab PO PRN (14:55)
[2020-12-07] MEDS ORDERED: Ibuprofen 800 MG Tab PO PRN (14:55)
[2020-12-07] MEDS ORDERED: Promethazine 25 MG/ML SDV IM PRN (14:55)
--- NOTE | 2020-12-07 15:09 | PCM.OPNOTE ---
- General Post-Op/Procedure Note Date of Surgery/Procedure: 12/07/20 Operative Procedure(s): Exploratory laparotomy. Primary wound closure Findings: Intra-operative consultation by Dr. Vic Coats: Bowel appears healthy and normal. Complete dehiscence of skin and fascial incisions. Viable skin, subcutaneous tissue, and fascia. Intra-operative abdominal x-ray: No retained foreign objects. Dermal piercing lower back. Pre Op Diagnosis: POD#3 s/p repeat . Complete skin and fascial dehiscence of wound. Bowel evisceration through wound Post-Op Diagnosis: Same Anesthesia Technique: General ET Tube Primary Surgeon: Anitha Sanchez Anesthesia Provider: Donnell Burk Certified Personal Trainer: Vic Coats Reason Certified Personal Trainer Was Necessary: Intra-operative General Surgery consultation for evaluation of bowel Fluid Replacement, Intraop: 1,500 Output, Urine Amount: 550 (clear urine) EBL in mLs: 15 Complications: None Condition: Good Free Text/Narrative:: Intake & Output 12/07/20 12/07/20 12/07/20 06:59 14:59 22:59 Output Total 550 Balance -550 Skin closed with davon ISABELLA dressing placed over incision
[2020-12-07] MEDS: Acetaminophen/oxyCODONE 325-5 MG Tab PO PRN ×2 (16:24→22:57)
--- NOTE | 2020-12-07 17:48 | PN ---
I was called by Dr. Anitha Sanchez to come assist her in the OR because the patient was postop day 3 from a . Apparently, patient had some drainage from the incision and was seen in clinic because the bandage was stuck on some apparently fat that had come through her incision. The wound was slightly opened up and then she saw underlying bowel. She had packed her with mostly lap sponges and sent her to the hospital. Please see her note for further details. During the procedure, the bowel was inspected. It appeared intact and clean with no injuries. The abdomen was then closed in several layers with irrigation. Please again see Dr. Sanchez's note for details of the procedure. The patient went to recovery room in stable condition. NERY / ABBIE /[id number]
--- NOTE | 2020-12-07 19:36 | PCM.SN.2 ---
- Free Text/Narrative Note: Patient states she is more sore, but is otherwise doing very well. Has requested catheter removal, but has not yet voided, believes she will need to soon. Tolerating clear liquids without nausea, wants to eat. Denies dizziness, chest pain, shortness of breath. VSS Dressing intact with minimal shadowing. Plan: May have crackers tonight, full breakfast in AM if no problems with nausea overnight. Straight cath if unable to void after 6 hours. Has pumped twice since delivery, will dump those and save from now. Discussed plan for follow-up next week. All questions answered.
--- NOTE | 2020-12-07 22:48 | OR ---
SURGEON: Anitha Sanchez MD DATE OF PROCEDURE: 12/07/2020 PREOPERATIVE DIAGNOSES: 1. Postoperative day 3, status post repeat section. 2. Complete skin and fascial dehiscence of the wound. 3. Bowel evisceration through the wound. POSTOPERATIVE DIAGNOSES: 1. Postoperative day 3, status post repeat section. 2. Complete skin and fascial dehiscence of the wound. 3. Bowel evisceration through the wound. PROCEDURE: Exploratory laparotomy and primary wound closure. ANESTHESIA: General endotracheal by Dr. Burk. PRIMARY SURGEON: Anitha Sanchez MD. INTRAOPERATIVE CONSULTATION: Vic Coats MD, General Surgery. IV FLUIDS: 1500 mL LR. URINE OUTPUT: 550 mL clear yellow urine. ESTIMATED BLOOD LOSS: 15 mL. ANTIBIOTIC PROPHYLAXIS: 2 g Ancef. FINDINGS: Intraoperative consultation by Dr. Vic Coats stating bowel appeared healthy and normal. Complete dehiscence of skin and fascial incisions. Viable skin, subcutaneous tissue, and fascia. Intraoperative abdominal x-ray showing no retained foreign objects, and a dermal piercing in the lower back. INDICATIONS: This is a 25-year-old who presented to clinic on postoperative day 3 from C- section #3, stating that her dressing had adhered to her incision. She has been monitoring drainage from her incision that had decreased prior to discharge home on postoperative day #2. Upon removal of the dressing, a small amount of fat was noted protruding through a 2 cm midline opening of the Pfannenstiel incision. The incision was probed to 5 to 6 cm, but it was difficult to determine if the fascia was intact. A single additional suture to the left of the midline was removed in clinic and small-bowel evisceration through the fascia and skin was noted. This was packed with moist gauze and covered with a pressure dressing. The patient was taken to the hospital for urgent surgery. General Surgery consultation was obtained to evaluate the bowel. DESCRIPTION OF PROCEDURE: The patient was taken to the operating room, where general anesthesia was obtained. She was placed in the dorsal supine position. She was prepared and draped in a normal sterile fashion. The remaining subcutaneous and fascial suture were removed. The bowel was inspected by Dr. Coats, and it was felt that it was in good health and no abnormalities were noted. The bowel was replaced into the abdomen. The peritoneum was closed with a running stitch of 3-0 Vicryl suture. The muscle was closed with a horizontal mattress suture of 2-0 Vicryl suture. The abdomen was irrigated with sterile water. The fascia was then closed with interrupted [id number] sutures of 0 Vicryl suture. It was palpated after closure and felt to be intact. The subcutaneous tissue was closed with 3-0 Vicryl in a running fashion. An abdominal x-ray was obtained to confirm that no foreign objects were in the abdomen either from prior surgery, today's surgery, or while the patient was discharged home. This was normal with the exception of visualization of a dermal piercing in the patient's lower back, which was visualized by the nurse during surgery. The skin was closed with davon. A ISABELLA dressing was placed over the incision. All sponge, lap, and needle counts were correct. The patient was awakened and taken to recovery room in stable condition. She will be observed overnight with clear liquid diet until the morning and then will be advanced to regular diet if tolerating oral intake. [id number] / MODL /[id number] DANIEL
[2020-12-07] MEDS: Docusate Sodium 100 MG Cap PO SCH (22:57)
[2020-12-08] MEDS: Acetaminophen/oxyCODONE 325-5 MG Tab PO PRN ×2 (04:39→09:42)
[2020-12-08 06:21] LABS: BLOOD UREA NITROGEN,BUN 8 mg/dL (7.0-18.0); CARBON DIOXIDE,CO2 27.6 mmol/L (21.0-32.0); CHLORIDE,CL 106 mmol/L (98-107); GLUCOSE RANDOM 79 mg/dL (74-106); POTASSIUM,K 4.1 mmol/L (3.5-5.1); SODIUM,NA 142 mmol/L (136-145)
[2020-12-08] MEDS: Docusate Sodium 100 MG Cap PO SCH (08:51)
--- NOTE | 2020-12-08 09:28 | PCM.PN ---
- General Info Date of Service: 12/08/20 Subjective Update: Passing flatus. Breastpumping going very well, milk has come in. Functional Status: Reports: Pain Controlled, Tolerating Diet, Ambulating, Urinating - Review of Systems General: Reports: No Symptoms HEENT: Reports: No Symptoms Pulmonary: Reports: No Symptoms Cardiovascular: Reports: No Symptoms Gastrointestinal: Reports: Abdominal Pain (appropriate post-op pain) Genitourinary: Reports: No Symptoms Musculoskeletal: Reports: No Symptoms Skin: Reports: No Symptoms Neurological: Reports: No Symptoms Psychiatric: Reports: No Symptoms - Patient Data Vitals - Most Recent: Last Vital Signs Temp 36.9 C 12/08/20 08:14 Pulse 84 12/08/20 08:14 Resp 16 12/08/20 08:14 BP 118/67 12/08/20 08:14 Pulse Ox 97 12/08/20 08:14 Weight - Most Recent: 84.822 kg I&O - Last 24 Hours: Intake & Output 12/07/20 12/08/20 12/08/20 22:59 06:59 14:59 Intake Total 3350 Output Total 2000 Balance 1350 Lab Results Last 24 Hours: Laboratory Results - last 24 hr 12/07/20 12/07/20 12/07/20 Range/Units 12:39 12:40 12:40 WBC 10.80 (4.0-11.0) K/uL RBC 3.84 L (4.30-5.90) M/uL Hgb 11.6 L (12.0-16.0) g/dL Hct 35.8 L (36.0-46.0) % MCV 93.2 (80.0-98.0) fL MCH 30.2 (27.0-32.0) pg MCHC 32.4 (31.0-37.0) g/dL RDW Std Deviation 47.6 (28.0-62.0) fl RDW Coeff of Rubio 14 (11.0-15.0) % Plt Count 214 (150-400) K/uL MPV 11.90 (7.40-12.00) fL Neut % (Auto) (48.0-80.0) % Lymph % (Auto) (16.0-40.0) % [place] % (Auto) (0.0-15.0) % Eos % (Auto) (0.0-7.0) % Baso % (Auto) (0.0-1.5) % Neut # (Auto) (1.4-5.7) K/uL Lymph # (Auto) (0.6-2.4) K/uL [place] # (Auto) (0.0-0.8) K/uL Eos # (Auto) (0.0-0.7) K/uL Baso # (Auto) (0.0-0.1) K/uL Nucleated RBC % 0.0 /100WBC Nucleated RBCs # 0 K/uL Sodium (136-145) mmol/L Potassium (3.5-5.1) mmol/L Chloride (98-107) mmol/L Carbon Dioxide (21.0-32.0) mmol/L BUN (7.0-18.0) mg/dL Creatinine (0.6-1.0) mg/dL Est Cr Clr Drug Dosing mL/min Estimated GFR (MDRD) ml/min Glucose (74-106) mg/dL Calcium (8.5-10.1) mg/dL SARS-CoV-2 RNA (ABDOULAYE) NEGATIVE (NEGATIVE) Blood Type O POSITIVE Antibody Screen NEGATIVE 12/07/20 12/08/20 12/08/20 Range/Units 12:40 05:43 05:43 WBC 9.75 (4.0-11.0) K/uL RBC 3.45 L (4.30-5.90) M/uL Hgb 10.1 L (12.0-16.0) g/dL Hct 32.3 L (36.0-46.0) % MCV 93.6 (80.0-98.0) fL MCH 29.3 (27.0-32.0) pg MCHC 31.3 (31.0-37.0) g/dL RDW Std Deviation 48.1 (28.0-62.0) fl RDW Coeff of Rubio 14 (11.0-15.0) % Plt Count 201 (150-400) K/uL MPV 11.90 (7.40-12.00) fL Neut % (Auto) 66.7 (48.0-80.0) % Lymph % (Auto) 20.8 (16.0-40.0) % [place] % (Auto) 8.9 (0.0-15.0) % Eos % (Auto) 3.4 (0.0-7.0) % Baso % (Auto) 0.2 (0.0-1.5) % Neut # (Auto) 6.5 H (1.4-5.7) K/uL Lymph # (Auto) 2.0 (0.6-2.4) K/uL [place] # (Auto) 0.9 H (0.0-0.8) K/uL Eos # (Auto) 0.3 (0.0-0.7) K/uL Baso # (Auto) 0.0 (0.0-0.1) K/uL Nucleated RBC % 0.0 /100WBC Nucleated RBCs # 0 K/uL Sodium 142 142 (136-145) mmol/L Potassium 4.1 4.1 (3.5-5.1) mmol/L Chloride 105 106 (98-107) mmol/L Carbon Dioxide 25.5 27.6 (21.0-32.0) mmol/L BUN 13 8 (7.0-18.0) mg/dL Creatinine 0.6 0.6 (0.6-1.0) mg/dL Est Cr Clr Drug Dosing 157.41 157.41 mL/min Estimated GFR (MDRD) > 60.0 > 60.0 ml/min Glucose 76 79 (74-106) mg/dL Calcium 10.0 9.0 (8.5-10.1) mg/dL SARS-CoV-2 RNA (ABDOULAYE) (NEGATIVE) Blood Type Antibody Screen Med Orders - Current: Current Medications Docusate Sodium (Colace) 100 mg PO BID [facility] Last Admin: 12/08/20 08:51 Dose: 100 mg Documented by: Lactated Ringer's (Ringers, Lactated) 1,000 mls @ 125 mls/hr IV ASDIRECTED [facility] Last Admin: 12/07/20 12:30 Dose: 125 mls/hr Documented by: Lactated Ringer's (Ringers, Lactated) 1,000 mls @ 125 mls/hr IV ASDIRECTED [facility] Last Admin: 12/07/20 16:44 Dose: 125 mls/hr Documented by: Ibuprofen (Motrin) 800 mg PO Q8H PRN PRN Reason: Pain (mild 1-3) Morphine Sulfate (Morphine) 4 mg IVPUSH Q2H PRN PRN Reason: Pain (severe 7-10) Ondansetron HCl (Zofran) 4 mg IVPUSH Q6H PRN PRN Reason: Nausea/Vomiting Oxycodone/Acetaminophen (Percocet 325-5 Mg) 1 tab PO Q4H PRN PRN Reason: Pain (moderate 4-6) Oxycodone/Acetaminophen (Percocet 325-5 Mg) 2 tab PO Q4H PRN PRN Reason: Pain (moderate 4-6) Last Admin: 12/08/20 04:39 Dose: 2 tab Documented by: Promethazine HCl (Phenergan) 25 mg IM Q6H PRN PRN Reason: Nausea/Vomiting Sodium Chloride (Saline Flush) 10 ml FLUSH ASDIRECTED PRN PRN Reason: Keep Vein Open Sodium Chloride (Saline Flush) 2.5 ml FLUSH ASDIRECTED PRN PRN Reason: Keep Vein Open Sodium Chloride (Normal Saline) 10 ml IV ASDIRECTED PRN PRN Reason: IV Use Discontinued Medications Acetaminophen (Ofirmev) Confirm Administered Dose 100 mls @ as directed .ROUTE .STK-MED ONE Stop: 12/07/20 12:23 Cefazolin Sodium/Dextrose 2 gm (/ Premix) 50 mls @ 100 mls/hr IV ONETIME ONE Stop: 12/07/20 12:50 Morphine Sulfate (Morphine) 4 mg IVPUSH ONETIME ONE Stop: 12/07/20 13:57 Last Admin: 12/07/20 14:45 Dose: 4 mg Documented by: Rocuronium [place] (Rocuronium [place]) Confirm Administered Dose 50 mg .ROUTE .STK-MED ONE Stop: 12/07/20 12:24 Sugammadex Sodium (Bridion) Confirm Administered Dose 200 mg .ROUTE .STK-MED ONE Stop: 12/07/20 12:23 - Exam General: Alert, Oriented Neck: Supple Lungs: Normal Respiratory Effort GI/Abdominal Exam: Soft, Non-Tender, No Distention Extremities: No Pedal Edema Skin: Warm, Dry, Intact Wound/Incisions: Dressing Dry and Intact Neurological: No New Focal Deficit Psy/Mental Status: Alert, Normal Affect, Normal Mood Sepsis Event Note - Evaluation Sepsis Screening Result: No Definite Risk - Focused Exam Vital Signs: Vital Signs Temp Pulse Resp BP Pulse Ox 12/08/20 08:14 36.9 C 84 16 118/67 97 12/08/20 04:50 36.4 C 74 15 111/70 97 - Problem List & Annotations (1) Dehiscence of section wound, SNOMED Code(s): 024474596 Code(s): O90.0 - DISRUPTION OF DELIVERY WOUND Status: Acute Current Visit: No - Problem List Review Problem List Initiated/Reviewed/Updated: Yes - My Orders Last 24 Hours: My Active Orders 12/07/20 12:21 Patient Status [ADT] Routine Vital Signs [RC] PER UNIT ROUTINE Sodium Chloride 0.9% [Normal Saline] 10 ml IV ASDIRECTED PRN Sodium Chloride 0.9% [Saline Flush] 10 ml FLUSH ASDIRECTED PRN Sodium Chloride 0.9% [Saline Flush] 2.5 ml FLUSH ASDIRECTED PRN Peripheral IV Insertion Adult [OM.PC] Urgent Sequential Compression Device [OM.PC] Per Unit Routine 12/07/20 12:22 Antiembolic Devices [RC] PER UNIT ROUTINE 12/07/20 12:30 Lactated Ringers [Ringers, Lactated] 1,000 ml IV ASDIRECTED 12/07/20 14:55 Patient Status [ADT] Routine Notify Provider Intake and Out [RC] ASDIRECTED Notify Provider Vital Signs [RC] ASDIRECTED Oxygen Therapy [RC] ASDIRECTED RT Incentive Spirometry [RC] Q2HWA Up With Assistance [RC] PER UNIT ROUTINE Up ad Sharon [RC] PER UNIT ROUTINE Vital Signs [RC] PER UNIT ROUTINE Acetaminophen/oxyCODONE [Percocet 325-5 MG] 1 tab PO Q4H PRN Acetaminophen/oxyCODONE [Percocet 325-5 MG] 2 tab PO Q4H PRN Ibuprofen [Motrin] 800 mg PO Q8H PRN Morphine 4 mg IVPUSH Q2H PRN Ondansetron [Zofran] 4 mg IVPUSH Q6H PRN Promethazine [Phenergan] 25 mg IM Q6H PRN Peripheral IV Discontinue [OM.PC] Routine Sequential Compression Device [OM.PC] Per Unit Routine Resuscitation Status Routine 12/07/20 14:56 Antiembolic Devices [RC] PER UNIT ROUTINE Intake and Output [RC] PER UNIT ROUTINE Abdominal Binder [OM.PC] Per Unit Routine 12/07/20 14:58 Breast Pump [WOMSER] Routine 12/07/20 15:00 Lactated Ringers [Ringers, Lactated] 1,000 ml IV ASDIRECTED 12/07/20 Dinner Clear Liquid Diet [DIET] 12/07/20 21:00 Docusate Sodium [Colace] 100 mg PO BID 12/08/20 Breakfast Regular Diet [DIET] 12/08/20 09:25 Ready for Discharge [RC] PER UNIT ROUTINE - Assessment Assessment:: 25yo s/p repeat #3 on 12/04/2020 at 39w0d, POD#4; s/p exploratory laparotomy and primary wound closure for complete dehiscence of skin and fascia with bowel evisceration, POD#1 - Plan Plan:: 1. Post-op: ISABELLA dressing working, discussed calling clinic if any problems. Will plan to remove dressing on Thursday in clinic and potentially replace. Will remove davon on Thursday in clinic. Reviewed post-op restrictions/instructions again. 2. Diet as tolerated. 3. Continue . All questions answered.
--- NOTE | 2020-12-08 09:34 | PCM48HPAN ---
Post Anesthesia Note - EVALUATION WITHIN 48HRS OF ANESTHETIC Vital Signs in Normal Range: Yes Patient Participated in Evaluation: Yes Respiratory Function Stable: Yes Airway Patent: Yes Cardiovascular Function Stable: Yes Hydration Status Stable: Yes Pain Control Satisfactory: Yes Nausea and Vomiting Control Satisfactory: Yes Mental Status Recovered: Yes Vital Signs: Last Vital Signs Temp 36.9 C 12/08/20 08:14 Pulse 84 12/08/20 08:14 Resp 16 12/08/20 08:14 BP 118/67 12/08/20 08:14 Pulse Ox 97 12/08/20 08:14 - COMMENTS/OBSERVATIONS Free Text/Narrative:: Doing well. No problems noted at this time.
== END 2020-12-08 10:00 | disposition home or self-care (01) ==
LOC: MW.SDS 12:29 → MW.OB 15:27
PROVIDERS: ADMIT Obstetrics & Gynecology; ATTEND Obstetrics & Gynecology
DX: O90.0 Disruption of cesarean delivery wound (principal); I10 Essential (primary) hypertension; Z79.899 Other long term (current) drug therapy; Z86.73 Personal history of transient ischemic attack (TIA), and cerebral infarction without residual deficits; Z01.812 Encounter for preprocedural laboratory examination; Z20.822 Contact with and (suspected) exposure to COVID-19
CPT/HCPCS: 36415; 74018; 74018-26; 80048; 85025; 85027; 86850; 86900; 86901; A9270-GY; J0131; J2270; J3490; J7120; U0002